=== PATIENT | female | born 1985 | race Two or more races ===

== ENCOUNTER 2024-05-15 21:03 | Emergency (ER) | payer OTHER ==
[2024-05-15 21:09] VITALS: BP 146/96; PULSE 78; RESP 19; TEMP 97.6; BMI 42.0
[2024-05-15] MEDS ORDERED: KETOROLAC TROMETHAMINE 30 MG/1 ML VIAL ONE (22:33)
[2024-05-15] MEDS ORDERED: METHOCARBAMOL 500 MG TABLET ONE (22:33)
[2024-05-15] MEDS: KETOROLAC TROMETHAMINE 30 MG/1 ML VIAL IM ONE (22:40)
[2024-05-15] MEDS: METHOCARBAMOL 500 MG TABLET PO ONE (22:40)
== END 2024-05-15 23:53 | disposition home or self-care (01) ==
LOC: JERFT 21:03
PROC: 3E0233Z Introduction of Anti-inflammatory into Muscle, Percutaneous Approach (ICD-10-PCS; principal; 2024-05-15)
DX: M77.12 Lateral epicondylitis, left elbow (principal); M25.522 Pain in left elbow
CPT/HCPCS: 73070-TC-LT-FY; 99284-25